=== PATIENT | female | born 1965 | race Caucasian/White ===

== ENCOUNTER 2023-06-04 16:30 | Emergency (ER) | payer MEDICAID, SELFPAY ==
--- NOTE | 2023-06-04 16:52 | ED.FEVER ---
HPI - Fever General Chief Complaint: Fever Stated Complaint: fever Time Seen by Provider: 06/04/23 18:34 Source: patient, family (son) and assurance analyst ( Syri[place]) Mode of arrival: ambulatory Limitations: no limitations History of Present Illness HPI Narrative: 58-year-old female came in for evaluation of a subjective fever for the past 7 days. on and off fever and chills that improve with ibuprofen, no sick contacts, patient traveled 2 weeks ago to [facility] Patient had [place]os[place] from [place] incision of the procedure is dry and clean and intact, patient feels a large lymph node behind her left ear, no ear pain, no sore throat, no runny nose, no coughing. Patient also was complaining some chest tightness earlier this morning. No chest pain, no coughing, no abdominal pain, no nausea, no vomiting, no diarrhea. Patient was evaluated twice at urgent care and was told is a viral syndrome. Related Data Allergies Allergy/AdvReac Type Severity Reaction Status Date / Time No Known Allergies Allergy Verified 06/04/23 16:59 Review of Systems Review of Systems: All other systems are reviewed and are negative Constitutional: Reports as per HPI and Reports no additional constitutional complaints Eyes: Reports as per HPI and Reports no additional eye complaints Reports system reviewed and no additional complaints, except as documented Cardiovascular: Reports as per HPI and Reports no additional cardiovascular complaints Respiratory: Reports as per HPI and Reports no additional respiratory complaints Gastrointestinal: Reports as per HPI and Reports no additional gastrointestinal complaints Genitourinary: Reports no additional female genitourinary complaints Musculoskeletal: Reports no additional musculoskeletal complaints Skin/Breast: Reports system reviewed and no additional complaints, except as docu Psychiatric: Reports no additional psychiatric complaints Endocrine: Reports no additional endocrine complaints Hematologic/Lymphatic: Reports no additional hematologic/lymphatic complaints Allergic/Immunologic: Reports no additional allergic/immunologic complaints Reports system reviewed and no additional complaints, except as documented and Reports Abnormal speech present PMFSH Social History Social History Advance Directives: No Advance Directives Information Provided: No Physical Exam Vital Signs: Vital Signs: Last Vital Signs Temp 98.4 F 06/04/23 16:54 Pulse 81 06/04/23 16:54 Resp 14 06/04/23 16:54 BP 113/73 06/04/23 16:54 Pulse Ox 94 06/04/23 16:54 O2 Del Method Room Air 06/04/23 16:54 BMI result Body Mass Index 34.5 Vital signs have been reviewed and appear to be correct. Blood pressure elevated. Heart rate normal. Respiratory rate normal. Temperature normal. Oxygen saturation normal. Appearance: Alert. Oriented X3. No acute distress. Head: Normal external exam. Normocephalic. Atraumatic. No Cross signs noted. No raccoon eyes noted. Mouth exam: No gum tenderness or swelling, no dental abscesses appreciated, mouth floor is normal with no elevation or tenderness or cellulitis , no tonsillar enlargement. Eyes: PERRLA. EOMI. Conjunctiva and sclera normal. Eyelids normal. ENT: TM's Normal. Pharynx normal. Uvula midline. Moist mucous membranes. No trismus noted. No drooling noted. No muffled voice noted. Neck: Normal inspection. Neck supple. FROM. No adenopathy. Thyroid Normal. No meningeal signs. No neck mass noted. CVS: Normal heart rate and rhythm. Heart sound normal. No murmurs noted. Pulses normal throughout. Respiratory: No respiratory distress. Painless inspiration. Breath sounds normal. No wheezes/rales/rhonchi noted. Chest nontender. No accessory muscle usage noted or decreased air movement noted. Abdomen: Soft and nontender. Bowel sounds normal in all 4 quadrants. No distention noted. No organomegaly noted. No visible injury noted. Back: No CVA tenderness. Full range of motion noted. Skin: Skin warm and dry. Normal skin color. Normal skin turgor. No rashes/lesions/lacerations noted. Extremities: No lower extremity edema. Extremities exhibit normal range of motion. Extremities nontender. Neuro: Oriented X 3. Cranial nerve exam: II-XII are grossly intact No motor deficit. No sensory deficit. Reflexes normal. Course Course Course Narrative: This is an RME: Additional HPI, ROS, PE not included below will be deferred to primary provider. 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 Intermittent fever x 1 week, responds to ibuprofen, headache x 1 week without improvement with ibuprofen, dizziness, chest pain and fatigue/ SOB with exertion/ walking. Seen at urgent care x2, advised viral illness. Endorses neck and back pain as well. Plan: labs, EKG, CXR, viral testing Reevaluation(s) Reevaluation #1: a 58-year-old female came in with fever of unclear etiology today is her 3rd evaluation this week for same fever, workup in the emergency department including chest x-ray/viral panel/ UA unremarkable. Time: 21:04 Medications Administered Discontinued Medications Generic Name Dose Route Start Last Admin Trade Name Freq PRN Reason Stop Dose Admin Sodium Chloride 1,000 mls @ 999 mls/hr 06/04/23 19:39 06/04/23 20:05 Ns IV 06/04/23 20:39 999 mls/hr .Q1H1M ONE Administration Potassium Chloride 10 meq in 100 mls @ 100 mls/hr 06/04/23 19:39 06/04/23 20:05 Potassium Chloride/H20 IV 06/04/23 20:38 100 mls/hr ONCE ONE Administration Potassium Chloride 40 meq 06/04/23 19:39 06/04/23 20:05 Potassium Chloride Packet 20 Meq Packet PO 06/04/23 19:40 40 meq ONCE ONE Administration Medical Decision Making Differential Diagnosis Differential Diagnoses: The differential diagnosis associated with the presentation includes ( COVID-19 infection, influenza, pneumonia, UTI, electrolyte abnormality, sepsis,) Admission/Observation Consideration of admission/observation: Escalation of care including admission/observation considered Lab Data MDM Lab Attestation statement: I reviewed the patient's lab results. 06/04/23 Unknown 06/04/23 Unknown Labs: Lab Results 06/04/23 06/04/23 Range/Units 18:53 Unknown WBC 9.7 (4.8-10.8) X10*3/uL RBC 5.37 (4.20-5.50) X10*6/uL Hgb 11.0 L (12.0-16.0) g/dl Hct 35.3 L (37.0-47.0) % MCV 65.7 L (80.0-98.0) fL MCH 20.5 L (27.0-33.0) pg MCHC 31.2 (31.0-35.0) g/dl RDW 16.3 H (11.0-16.0) % Plt Count 207 (160-400) X10*3/uL MPV 9.8 (9.4-12.3) fL Immature Gran % (Auto) 0.6 H (0.0-0.4) % Neut % (Auto) 51.6 (45-73) % Lymph % (Auto) 32.9 (20-40) % Alcorn % (Auto) 4.5 (2-11) % Eos % (Auto) 10.1 H (0-4) % Baso % (Auto) 0.3 (0-2) % Lymph # (Auto) 3.2 (1.2-4.9) X10*3/uL Alcorn # (Auto) 0.4 (0.1-1.2) X10*3/uL Eos # (Auto) 1.0 H (0.0-0.4) X10*3/uL Baso # (Auto) 0.0 (0.0-0.2) X10*3/uL Abs Immat Gran (auto) 0.06 H (0.00-0.03) X10*3/uL Absolute Neuts (auto) 5.0 (2.0-8.3) x10*3/uL Absolute Nucleated RBC 0.000 (0.0-0.012) X10*3/uL Nucleated RBC % (auto) 0.0 (0.0-0.2) /100WBC Smear Tech's Comments VERIFIED PT 13.4 H (11.1-13.3) SEC INR 1.1 (0.9-1.1) Sodium 140 (135-145) mmol/L Potassium 3.2 L (3.3-5.1) mmol/L Chloride 96 (96-108) mmol/L Carbon Dioxide 31 H (22-29) mmol/L Anion Gap 16 (12-20) BUN 21 H (9-16) mg/dL Creatinine 0.99 (0.5-1.4) mg/dL Estim Creat Clear Calc 74.5 Estimated GFR 58 Random Glucose 108 (60-115) mg/dL Calcium 9.4 (8.4-10.2) mg/dL Magnesium 1.8 (1.6-2.6) mg/dL Total Bilirubin 0.4 (0.0-1.0) mg/dL AST 19 (5-31) U/L ALT 26 (0-31) U/L Alkaline Phosphatase 117 (39-117) U/L Troponin I High Sens < 2.7 (<3.5-17.0) ng/L Total Protein 8.4 H (6.5-8.0) g/dL Albumin 3.8 (3.5-5.0) g/dL COVID-19 (HARRIETT) Negative (Negative) COVID-19 Clin Com See Note Influenza Type A (JANINE) Negative (Negative) Influenza Type B (JANINE) Negative (Negative) Influenza A & B Note See Note S. pyogenes GrpA JANINE Negative (Negative) Independent Interpretation I performed an independent interpretation of an: Plain X-Ray ( chest: No acute intrathoracic pathology.) Radiology Impression Discussion of test interpretation with radiology: I have reviewed the radiologist's reading. Discharge Plan Discharge Clinical Impression: Fever of unknown origin, Acute viral syndrome Patient Disposition: Home, Self-Care Instructions: Fever in Adults (ED)
[2023-06-04 16:54] VITALS: BP 113/73; PULSE 81; RESP 14; TEMP 36.9; O2SAT 94; BMI 34.5
--- NOTE | 2023-06-04 21:26 | PC.NURSE ---
Patient called this nurse into the room and complained that the IV potassium was causing her pain and doesn't want to finish the IV medication. Provider made aware and Okay'd for patient to not receive IV Potassium.
[2023-06-04 21:49] VITALS: BP 120/74; PULSE 91; RESP 15; O2SAT 96
== END 2023-06-04 21:55 | disposition home or self-care (01) ==
PROVIDERS: Emergency Provider Emergency Medicine
DX: B34.9 Viral infection, unspecified (principal); R50.9 Fever, unspecified; Z11.52 Encounter for screening for COVID-19
CPT/HCPCS: 71046; 80053; 81001; 83735; 84484; 85025; 85610; 87502; 87635; 87651; 93005; 96360; 99284; 99285

== ENCOUNTER 2023-06-09 22:21 | Emergency (ER) | payer MEDICAID, SELFPAY ==
--- NOTE | ~2023-06-09 | XR_ITS ---
EXAMINATION: XR CHEST CLINICAL INFORMATION: Shortness of breath COMPARISON: 06/04/2023 TECHNIQUE: Frontal view of the chest was obtained. FINDINGS: Similar appearing streaky opacities in left lower lung, likely subsegmental atelectasis. Mild bronchial wall thickening. No parenchymal consolidation. No pleural effusion. No pneumothorax. Cardiomediastinal silhouette and pulmonary vascularity are within normal limits. No acute osseous abnormalities. XR/XR chest 1V IMPRESSION: * Mild bronchial wall thickening could be compatible with mild bronchitis. * No focal consolidation.
[2023-06-09 22:41] VITALS: BP 137/66; PULSE 98; RESP 18; TEMP 38.1; O2SAT 93; BMI 35.2
[2023-06-09 23:30] LABS: MANUAL DIFF FLAG NO
[2023-06-09 23:31] LABS: Basophils Percent Auto 0.3 % (0-2); Eosinophils Absolute Auto 0.3 X10*3/uL (0.0-0.4); Eosinophils Percent Auto 2.5 % (0-4); Hematocrit 35.4 % (37.0-47.0); Hemoglobin 10.8 g/dl (12.0-16.0); Imm Gran Abs Auto 0.09 X10*3/uL (0.00-0.03); Imm Gran Pct Auto 0.7 % (0.0-0.4); Lymphocytes Absolute Auto 0.9 X10*3/uL (1.2-4.9); Lymphocytes Percent Auto 6.9 % (20-40); Mean Corpuscular HGB Conc 30.5 g/dl (31.0-35.0); Mean Corpuscular Hemoglobin 20.3 pg (27.0-33.0); Mean Corpuscular Volume 66.4 fL (80.0-98.0); Mean Platelet Volume 9.4 fL (9.4-12.3); Monocytes Absolute Auto 0.5 X10*3/uL (0.1-1.2); Monocytes Percent Auto 3.7 % (2-11); Neutrophils Absolute Auto 11.2 x10*3/uL (2.0-8.3); Neutrophils Percent Auto 85.9 % (45-73); Platelet Count 263 X10*3/uL (160-400); Red Blood Count 5.33 X10*6/uL (4.20-5.50); Red Cell Distribution Width 16.6 % (11.0-16.0)
[2023-06-09] MEDS: Acetaminophen 325 MG TABLET 650 MG PO (23:35)
[2023-06-09 23:48] LABS: COVID-19 Test Negative (Negative); IDNOW Serial# 9DB6401D; IDNOW Serial# BCCEAD1C; Influenza A Negative (Negative); Influenza B2 Negative (Negative)
[2023-06-09 23:50] LABS: Alanine Aminotransferase 22 U/L (0-31); Albumin Level 3.8 g/dL (3.5-5.0); Alkaline Phosphatase 92 U/L (39-117); Anion Gap 15 (12-20); Aspartate Amino Transferase 21 U/L (5-31); Bilirubin Direct 0.3 mg/dL (0.0-0.5); Bilirubin Total 0.8 mg/dL (0.0-1.0); Blood Urea Nitrogen 16 mg/dL (9-16); Carbon Dioxide 26 mmol/L (22-29); Chloride 101 mmol/L (96-108); Estimated Glomerular Filt Rate > 60; Glucose Random 106 mg/dL (60-115); Potassium 4.2 mmol/L (3.3-5.1); Sodium 138 mmol/L (135-145); Total Protein 8.5 g/dL (6.5-8.0)
--- NOTE | 2023-06-10 01:53 | ECG_ITS ---
Test Reason : SOB Blood Pressure : / mmHG Vent. Rate : 076 BPM Atrial Rate : 076 BPM P-R Int : 150 ms QRS Dur : 088 ms QT Int : 394 ms P-R-T Axes : 043 -23 043 degrees QTc Int : 443 ms Normal sinus rhythm RSR' or QR pattern in V1 suggests right ventricular conduction delay Otherwise normal ECG When compared with ECG of 04-JUN-2023 17:13, previous study had limb leads reversed Referred By: Jes Munoz Electronically Signed By:HAILEY SR MD
[2023-06-10 01:55] VITALS: BP 124/67; PULSE 85; RESP 16; TEMP 36.6; O2SAT 94
[2023-06-10 02:02] LABS: Appearance Urine Clear; Color Urine Yellow; Glucose Urine UA Negative (Negative); Leukocyte Esterase Urine Moderate (2+) (Negative); Nitrite Urine Negative (Negative); UMIC TRIGGER UACC YES; Urine Blood Negative (Negative); Urine Ketones Negative (Negative); Urine Protein Negative (Neg-Trace)
[2023-06-10 02:07] LABS: Bacteria Urine None Seen (None Seen); Hyaline Casts Urine 0-2 /LPF (0-2); RBC Urine 0-2 /HPF (0-2); Squamous Epithelial Cell Urine 0-2 /HPF (0-2); UACC Culture Trigger YES
[2023-06-10] MEDS: Ibuprofen 400 MG TABLET PO (02:08)
--- NOTE | 2023-06-10 02:17 | PC.NURSE ---
EKG obtained and reviewed by provider.
--- NOTE | 2023-06-10 02:24 | ED.GENADULT ---
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 Patient does endorse that she had plastic surgery done in [place] at the end of March but denies any redness or swelling at the neck area. She is diabetic and has high blood pressure. She otherwise denies any GI or symptoms. Related Data Previous Rx's Medication Instructions Recorded amoxicillin 875 mg-potassium 1 tab PO BID 5 days #10 tabs 06/10/23 clavulanate 125 mg tablet Allergies Allergy/AdvReac Type Severity Reaction Status Date / Time No Known Allergies Allergy Verified 06/09/23 22:40 Review of Systems Review of Systems: Pertinent positives and negatives as stated in HPI [facility] Past Medical History Source: nursing notes reviewed Social History Social History Alcohol intake: never Advance Directives: No Advance Directives Information Provided: Yes Physical Exam ED Vital Signs: Vital Signs - 24 hr 06/09/23 22:41 06/10/23 01:55 Temperature 100.6 F H 97.8 F Pulse Rate 98 85 Respiratory Rate 18 16 Blood Pressure 137/66 124/67 Pulse Oximetry 93 94 Oxygen Delivery Method Room Air Room Air BMI result Body Mass Index 35.2 VITAL SIGNS: Reviewed. GENERAL: Well developed, well nourished, in no acute distress. HEAD: Normocephalic/atraumatic EYES: PERRLA, EOMI EARS: Ext canals without abnormality, TMs non-bulging and non-erythematous NOSE: Nares patent bilateral OROPHARYNX: no oral lesions noted, posterior pharynx clear and non-erythematous without noted tonsillar enlargement/erythema/exudates NECK: Supple, +adenopathy LUNGS: Normal breath sounds. No adventitious sounds or accessory muscle use. SpO2<94> CARDIOVASCULAR: Regular rate and rhythm without noted murmurs ABDOMEN: Soft, non-tender, non-distended with bowel sounds. MUSCULOSKELETAL: No tenderness, deformities, or effusions noted on gross inspection. EXTREMITIES: No cyanosis, clubbing or edema. SKIN: Inspection of the skin reveals no rashes NEUROLOGIC: Alert and oriented x 4. Strength and sensation to light touch were grossly intact x 4. Medications Administered Discontinued Medications Generic Name Dose Route Start Last Admin Trade Name Oscar PRN Reason Stop Dose Admin Acetaminophen 650 mg 06/09/23 22:54 06/09/23 23:35 Acetaminophen 325 Mg Tablet PO 06/09/23 22:55 650 mg ONCE ONE Administration Ibuprofen 400 mg 06/10/23 01:52 06/10/23 02:08 Ibuprofen 400 Mg Tablet PO 06/10/23 01:53 400 mg ONCE ONE Administration Medical Decision Making Medical Decision Making MDM Narrative: 58-year-old female with history and clinical presentation not consistent with any facial or neck cellulitis, there is no evidence the posterior pharynx of any infection and the ears are clear. Patient has no abdominal discomfort and no reported nausea or vomiting so I do not feel that there is any intra-abdominal infection either. I reviewed all other investigations and patient has hematologic indices with a leukocytosis and a stable microcytic anemia, there is no thrombocytopenia but there is a noted left shift. Chemistry indices are negative for ARYA and there is no electrolyte or liver enzyme abnormalities. Viral testing for COVID-19 and influenza are once again negative, however urinalysis does appear to demonstrate evidence of a urinary tract infection as there is leukocyte esterase and the presence of WBCs. Chest x-ray suggests possibility of bronchitis but no infiltrates. Differential Diagnosis Differential Diagnoses: The differential diagnosis associated with the presentation includes Please see the discussion above Admission/Observation Consideration of admission/observation: Escalation of care including admission/observation considered Please see the discussion above Lab Data [facility] Lab Attestation statement: I reviewed the patient's lab results. Please see the discussion above 06/09/23 23:23 06/09/23 23:23 Labs: Lab Results 06/09/23 06/10/23 06/10/23 Range/Units 23:23 01:52 01:52 WBC 13.0 H (4.8-10.8) X10*3/uL RBC 5.33 (4.20-5.50) X10*6/uL Hgb 10.8 L (12.0-16.0) g/dl Hct 35.4 L (37.0-47.0) % MCV 66.4 L (80.0-98.0) fL MCH 20.3 L (27.0-33.0) pg MCHC 30.5 L (31.0-35.0) g/dl RDW 16.6 H (11.0-16.0) % Plt Count 263 D (160-400) X10*3/uL MPV 9.4 (9.4-12.3) fL Immature Gran % (Auto) 0.7 H (0.0-0.4) % Neut % (Auto) 85.9 H (45-73) % Lymph % (Auto) 6.9 L (20-40) % [place] % (Auto) 3.7 (2-11) % Eos % (Auto) 2.5 (0-4) % Baso % (Auto) 0.3 (0-2) % Lymph # (Auto) 0.9 L (1.2-4.9) X10*3/uL [place] # (Auto) 0.5 (0.1-1.2) X10*3/uL Eos # (Auto) 0.3 (0.0-0.4) X10*3/uL Baso # (Auto) 0.0 (0.0-0.2) X10*3/uL Abs Immat Gran (auto) 0.09 H (0.00-0.03) X10*3/uL Absolute Neuts (auto) 11.2 H (2.0-8.3) x10*3/uL Absolute Nucleated RBC 0.000 (0.0-0.012) X10*3/uL Nucleated RBC % (auto) 0.0 (0.0-0.2) /100WBC Sodium 138 (135-145) mmol/L Potassium 4.2 D (3.3-5.1) mmol/L Chloride 101 (96-108) mmol/L Carbon Dioxide 26 (22-29) mmol/L Anion Gap 15 (12-20) BUN 16 (9-16) mg/dL Creatinine 0.90 (0.5-1.4) mg/dL Estim Creat Clear Calc 80.0 Estimated GFR > 60 Random Glucose 106 (60-115) mg/dL Lactic Acid 1.0 (0.5-2.0) mmol/L Calcium 9.0 (8.4-10.2) mg/dL Total Bilirubin 0.8 (0.0-1.0) mg/dL Direct Bilirubin 0.3 (0.0-0.5) mg/dL AST 21 (5-31) U/L ALT 22 (0-31) U/L Alkaline Phosphatase 92 (39-117) U/L Total Protein 8.5 H (6.5-8.0) g/dL Albumin 3.8 (3.5-5.0) g/dL Urine Color Yellow Cancelled Urine Appearance Clear Urine pH (5.0-9.0) Ur Specific [place] (1.005-1.025) Urine Protein (Neg-Trace) mg/dL Urine Glucose (UA) (Negative) mg/dL Urine Ketones (Negative) mg/dL Urine Blood (Negative) Urine Nitrite (Negative) Ur Leukocyte Esterase (Negative) Urine RBC (0-2) /HPF Urine WBC (0-5) /HPF Urine WBC Clumps Ur Squamous Epith Cells (0-2) /HPF Ur Transition Epith Cell Ur Renal Epithelial Cell Calcium Oxalate Crystal Leucine Crystals Cystine Crystals Tyrosine Crystals Other Crystals Urine Bacteria (None Seen) Urine Parasites Bilirubin Casts Epithelial Casts Fatty Casts Hyaline Casts (0-2) /LPF Granular Casts Waxy Casts Broad Casts RBC Casts WBC Casts Other Casts Urine Trichomonas Urine Yeast COVID-19 (HARRIETT) Negative (Negative) COVID-19 Clin Com See Note Influenza Type A (JANINE) Negative (Negative) Influenza Type B (JANINE) Negative (Negative) Influenza A & B Note See Note 06/10/23 06/10/23 06/10/23 Range/Units 01:52 01:52 01:52 WBC (4.8-10.8) X10*3/uL RBC (4.20-5.50) X10*6/uL Hgb (12.0-16.0) g/dl Hct (37.0-47.0) % MCV (80.0-98.0) fL MCH (27.0-33.0) pg MCHC (31.0-35.0) g/dl RDW (11.0-16.0) % Plt Count (160-400) X10*3/uL MPV (9.4-12.3) fL Immature Gran % (Auto) (0.0-0.4) % Neut % (Auto) (45-73) % Lymph % (Auto) (20-40) % [place] % (Auto) (2-11) % Eos % (Auto) (0-4) % Baso % (Auto) (0-2) % Lymph # (Auto) (1.2-4.9) X10*3/uL [place] # (Auto) (0.1-1.2) X10*3/uL Eos # (Auto) (0.0-0.4) X10*3/uL Baso # (Auto) (0.0-0.2) X10*3/uL Abs Immat Gran (auto) (0.00-0.03) X10*3/uL Absolute Neuts (auto) (2.0-8.3) x10*3/uL Absolute Nucleated RBC (0.0-0.012) X10*3/uL Nucleated RBC % (auto) (0.0-0.2) /100WBC Sodium (135-145) mmol/L Potassium (3.3-5.1) mmol/L Chloride (96-108) mmol/L Carbon Dioxide (22-29) mmol/L Anion Gap (12-20) BUN (9-16) mg/dL Creatinine (0.5-1.4) mg/dL Estim Creat Clear Calc Estimated GFR Random Glucose (60-115) mg/dL Lactic Acid (0.5-2.0) mmol/L Calcium (8.4-10.2) mg/dL Total Bilirubin (0.0-1.0) mg/dL Direct Bilirubin (0.0-0.5) mg/dL AST (5-31) U/L ALT (0-31) U/L Alkaline Phosphatase (39-117) U/L Total Protein (6.5-8.0) g/dL Albumin (3.5-5.0) g/dL Urine Color Urine Appearance Cancelled Urine pH 6.0 Cancelled (5.0-9.0) Ur Specific [place] 1.010 Cancelled (1.005-1.025) Urine Protein Negative (Neg-Trace) mg/dL Urine Glucose (UA) (Negative) mg/dL Urine Ketones (Negative) mg/dL Urine Blood (Negative) Urine Nitrite (Negative) Ur Leukocyte Esterase (Negative) Urine RBC (0-2) /HPF Urine WBC (0-5) /HPF Urine WBC Clumps Ur Squamous Epith Cells (0-2) /HPF Ur Transition Epith Cell Ur Renal Epithelial Cell Calcium Oxalate Crystal Leucine Crystals Cystine Crystals Tyrosine Crystals Other Crystals Urine Bacteria (None Seen) Urine Parasites Bilirubin Casts Epithelial Casts Fatty Casts Hyaline Casts (0-2) /LPF Granular Casts Waxy Casts Broad Casts RBC Casts WBC Casts Other Casts Urine Trichomonas Urine Yeast COVID-19 (HARRIETT) (Negative) COVID-19 Clin Com Influenza Type A (JANINE) (Negative) Influenza Type B (JANINE) (Negative) Influenza A & B Note 06/10/23 06/10/23 06/10/23 Range/Units 01:52 01:52 01:52 WBC (4.8-10.8) X10*3/uL RBC (4.20-5.50) X10*6/uL Hgb (12.0-16.0) g/dl Hct (37.0-47.0) % MCV (80.0-98.0) fL MCH (27.0-33.0) pg MCHC (31.0-35.0) g/dl RDW (11.0-16.0) % Plt Count (160-400) X10*3/uL MPV (9.4-12.3) fL Immature Gran % (Auto) (0.0-0.4) % Neut % (Auto) (45-73) % Lymph % (Auto) (20-40) % [place] % (Auto) (2-11) % Eos % (Auto) (0-4) % Baso % (Auto) (0-2) % Lymph # (Auto) (1.2-4.9) X10*3/uL [place] # (Auto) (0.1-1.2) X10*3/uL Eos # (Auto) (0.0-0.4) X10*3/uL Baso # (Auto) (0.0-0.2) X10*3/uL Abs Immat Gran (auto) (0.00-0.03) X10*3/uL Absolute Neuts (auto) (2.0-8.3) x10*3/uL Absolute Nucleated RBC (0.0-0.012) X10*3/uL Nucleated RBC % (auto) (0.0-0.2) /100WBC Sodium (135-145) mmol/L Potassium (3.3-5.1) mmol/L Chloride (96-108) mmol/L Carbon Dioxide (22-29) mmol/L Anion Gap (12-20) BUN (9-16) mg/dL Creatinine (0.5-1.4) mg/dL Estim Creat Clear Calc Estimated GFR Random Glucose (60-115) mg/dL Lactic Acid (0.5-2.0) mmol/L Calcium (8.4-10.2) mg/dL Total Bilirubin (0.0-1.0) mg/dL Direct Bilirubin (0.0-0.5) mg/dL AST (5-31) U/L ALT (0-31) U/L Alkaline Phosphatase (39-117) U/L Total Protein (6.5-8.0) g/dL Albumin (3.5-5.0) g/dL Urine Color Urine Appearance Urine pH (5.0-9.0) Ur Specific [place] (1.005-1.025) Urine Protein Cancelled (Neg-Trace) mg/dL Urine Glucose (UA) Negative Cancelled (Negative) mg/dL Urine Ketones Negative Cancelled (Negative) mg/dL Urine Blood Negative (Negative) Urine Nitrite (Negative) Ur Leukocyte Esterase (Negative) Urine RBC (0-2) /HPF Urine WBC (0-5) /HPF Urine WBC Clumps Ur Squamous Epith Cells (0-2) /HPF Ur Transition Epith Cell Ur Renal Epithelial Cell Calcium Oxalate Crystal Leucine Crystals Cystine Crystals Tyrosine Crystals Other Crystals Urine Bacteria (None Seen) Urine Parasites Bilirubin Casts Epithelial Casts Fatty Casts Hyaline Casts (0-2) /LPF Granular Casts Waxy Casts Broad Casts RBC Casts WBC Casts Other Casts Urine Trichomonas Urine Yeast COVID-19 (HARRIETT) (Negative) COVID-19 Clin Com Influenza Type A (JANINE) (Negative) Influenza Type B (JANINE) (Negative) Influenza A & B Note 06/10/23 06/10/23 06/10/23 Range/Units 01:52 01:52 01:52 WBC (4.8-10.8) X10*3/uL RBC (4.20-5.50) X10*6/uL Hgb (12.0-16.0) g/dl Hct (37.0-47.0) % MCV (80.0-98.0) fL MCH (27.0-33.0) pg MCHC (31.0-35.0) g/dl RDW (11.0-16.0) % Plt Count (160-400) X10*3/uL MPV (9.4-12.3) fL Immature Gran % (Auto) (0.0-0.4) % Neut % (Auto) (45-73) % Lymph % (Auto) (20-40) % [place] % (Auto) (2-11) % Eos % (Auto) (0-4) % Baso % (Auto) (0-2) % Lymph # (Auto) (1.2-4.9) X10*3/uL [place] # (Auto) (0.1-1.2) X10*3/uL Eos # (Auto) (0.0-0.4) X10*3/uL Baso # (Auto) (0.0-0.2) X10*3/uL Abs Immat Gran (auto) (0.00-0.03) X10*3/uL Absolute Neuts (auto) (2.0-8.3) x10*3/uL Absolute Nucleated RBC (0.0-0.012) X10*3/uL Nucleated RBC % (auto) (0.0-0.2) /100WBC Sodium (135-145) mmol/L Potassium (3.3-5.1) mmol/L Chloride (96-108) mmol/L Carbon Dioxide (22-29) mmol/L Anion Gap (12-20) BUN (9-16) mg/dL Creatinine (0.5-1.4) mg/dL Estim Creat Clear Calc Estimated GFR Random Glucose (60-115) mg/dL Lactic Acid (0.5-2.0) mmol/L Calcium (8.4-10.2) mg/dL Total Bilirubin (0.0-1.0) mg/dL Direct Bilirubin (0.0-0.5) mg/dL AST (5-31) U/L ALT (0-31) U/L Alkaline Phosphatase (39-117) U/L Total Protein (6.5-8.0) g/dL Albumin (3.5-5.0) g/dL Urine Color Urine Appearance Urine pH (5.0-9.0) Ur Specific [place] (1.005-1.025) Urine Protein (Neg-Trace) mg/dL Urine Glucose (UA) (Negative) mg/dL Urine Ketones (Negative) mg/dL Urine Blood Cancelled (Negative) Urine Nitrite Negative Cancelled (Negative) Ur Leukocyte Esterase Moderate (2+) H Cancelled (Negative) Urine RBC 0-2 (0-2) /HPF Urine WBC (0-5) /HPF Urine WBC Clumps Ur Squamous Epith Cells (0-2) /HPF Ur Transition Epith Cell Ur Renal Epithelial Cell Calcium Oxalate Crystal Leucine Crystals Cystine Crystals Tyrosine Crystals Other Crystals Urine Bacteria (None Seen) Urine Parasites Bilirubin Casts Epithelial Casts Fatty Casts Hyaline Casts (0-2) /LPF Granular Casts Waxy Casts Broad Casts RBC Casts WBC Casts Other Casts Urine Trichomonas Urine Yeast COVID-19 (HARRIETT) (Negative) COVID-19 Clin Com Influenza Type A (JANINE) (Negative) Influenza Type B (JANINE) (Negative) Influenza A & B Note 06/10/23 06/10/23 06/10/23 Range/Units 01:52 01:52 01:52 WBC (4.8-10.8) X10*3/uL RBC (4.20-5.50) X10*6/uL Hgb (12.0-16.0) g/dl Hct (37.0-47.0) % MCV (80.0-98.0) fL MCH (27.0-33.0) pg MCHC (31.0-35.0) g/dl RDW (11.0-16.0) % Plt Count (160-400) X10*3/uL MPV (9.4-12.3) fL Immature Gran % (Auto) (0.0-0.4) % Neut % (Auto) (45-73) % Lymph % (Auto) (20-40) % [place] % (Auto) (2-11) % Eos % (Auto) (0-4) % Baso % (Auto) (0-2) % Lymph # (Auto) (1.2-4.9) X10*3/uL [place] # (Auto) (0.1-1.2) X10*3/uL Eos # (Auto) (0.0-0.4) X10*3/uL Baso # (Auto) (0.0-0.2) X10*3/uL Abs Immat Gran (auto) (0.00-0.03) X10*3/uL Absolute Neuts (auto) (2.0-8.3) x10*3/uL Absolute Nucleated RBC (0.0-0.012) X10*3/uL Nucleated RBC % (auto) (0.0-0.2) /100WBC Sodium (135-145) mmol/L Potassium (3.3-5.1) mmol/L Chloride (96-108) mmol/L Carbon Dioxide (22-29) mmol/L Anion Gap (12-20) BUN (9-16) mg/dL Creatinine (0.5-1.4) mg/dL Estim Creat Clear Calc Estimated GFR Random Glucose (60-115) mg/dL Lactic Acid (0.5-2.0) mmol/L Calcium (8.4-10.2) mg/dL Total Bilirubin (0.0-1.0) mg/dL Direct Bilirubin (0.0-0.5) mg/dL AST (5-31) U/L ALT (0-31) U/L Alkaline Phosphatase (39-117) U/L Total Protein (6.5-8.0) g/dL Albumin (3.5-5.0) g/dL Urine Color Urine Appearance Urine pH (5.0-9.0) Ur Specific [place] (1.005-1.025) Urine Protein (Neg-Trace) mg/dL Urine Glucose (UA) (Negative) mg/dL Urine Ketones (Negative) mg/dL Urine Blood (Negative) Urine Nitrite (Negative) Ur Leukocyte Esterase (Negative) Urine RBC Cancelled (0-2) /HPF Urine WBC 11-20 H Cancelled (0-5) /HPF Urine WBC Clumps Cancelled Ur Squamous Epith Cells 0-2 Cancelled (0-2) /HPF Ur Transition Epith Cell Cancelled Ur Renal Epithelial Cell Cancelled Calcium Oxalate Crystal Cancelled Leucine Crystals Cancelled Cystine Crystals Cancelled Tyrosine Crystals Cancelled Other Crystals Cancelled Urine Bacteria None Seen (None Seen) Urine Parasites Bilirubin Casts Epithelial Casts Fatty Casts Hyaline Casts (0-2) /LPF Granular Casts Waxy Casts Broad Casts RBC Casts WBC Casts Other Casts Urine Trichomonas Urine Yeast COVID-19 (HARRIETT) (Negative) COVID-19 Clin Com Influenza Type A (JANINE) (Negative) Influenza Type B (JANINE) (Negative) Influenza A & B Note 06/10/23 06/10/23 Range/Units 01:52 01:52 WBC (4.8-10.8) X10*3/uL RBC (4.20-5.50) X10*6/uL Hgb (12.0-16.0) g/dl Hct (37.0-47.0) % MCV (80.0-98.0) fL MCH (27.0-33.0) pg MCHC (31.0-35.0) g/dl RDW (11.0-16.0) % Plt Count (160-400) X10*3/uL MPV (9.4-12.3) fL Immature Gran % (Auto) (0.0-0.4) % Neut % (Auto) (45-73) % Lymph % (Auto) (20-40) % [place] % (Auto) (2-11) % Eos % (Auto) (0-4) % Baso % (Auto) (0-2) % Lymph # (Auto) (1.2-4.9) X10*3/uL [place] # (Auto) (0.1-1.2) X10*3/uL Eos # (Auto) (0.0-0.4) X10*3/uL Baso # (Auto) (0.0-0.2) X10*3/uL Abs Immat Gran (auto) (0.00-0.03) X10*3/uL Absolute Neuts (auto) (2.0-8.3) x10*3/uL Absolute Nucleated RBC (0.0-0.012) X10*3/uL Nucleated RBC % (auto) (0.0-0.2) /100WBC Sodium (135-145) mmol/L Potassium (3.3-5.1) mmol/L Chloride (96-108) mmol/L Carbon Dioxide (22-29) mmol/L Anion Gap (12-20) BUN (9-16) mg/dL Creatinine (0.5-1.4) mg/dL Estim Creat Clear Calc Estimated GFR Random Glucose (60-115) mg/dL Lactic Acid (0.5-2.0) mmol/L Calcium (8.4-10.2) mg/dL Total Bilirubin (0.0-1.0) mg/dL Direct Bilirubin (0.0-0.5) mg/dL AST (5-31) U/L ALT (0-31) U/L Alkaline Phosphatase (39-117) U/L Total Protein (6.5-8.0) g/dL Albumin (3.5-5.0) g/dL Urine Color Urine Appearance Urine pH (5.0-9.0) Ur Specific [place] (1.005-1.025) Urine Protein (Neg-Trace) mg/dL Urine Glucose (UA) (Negative) mg/dL Urine Ketones (Negative) mg/dL Urine Blood (Negative) Urine Nitrite (Negative) Ur Leukocyte Esterase (Negative) Urine RBC (0-2) /HPF Urine WBC (0-5) /HPF Urine WBC Clumps Ur Squamous Epith Cells (0-2) /HPF Ur Transition Epith Cell Ur Renal Epithelial Cell Calcium Oxalate Crystal Leucine Crystals Cystine Crystals Tyrosine Crystals Other Crystals Urine Bacteria Cancelled (None Seen) Urine Parasites Cancelled Bilirubin Casts Cancelled Epithelial Casts Cancelled Fatty Casts Cancelled Hyaline Casts 0-2 Cancelled (0-2) /LPF Granular Casts Cancelled Waxy Casts Cancelled Broad Casts Cancelled RBC Casts Cancelled WBC Casts Cancelled Other Casts Cancelled Urine Trichomonas Cancelled Urine Yeast Cancelled COVID-19 (HARRIETT) (Negative) COVID-19 Clin Com Influenza Type A (JANINE) (Negative) Influenza Type B (JANINE) (Negative) Influenza A & B Note Independent Interpretation I performed an independent interpretation of an: EKG Interpretation: Normal sinus rhythm, HR-76, no STEMI, OH/QRS/QTC is within normal limits. Radiology Impression Discussion of test interpretation with radiology: I have reviewed the radiologist's reading. Radiologist Impression: Please see the discussion above External Record Review External record reviewed: Outpatient record, Prior outpatient labs and Prior outpatient radiology Chronic Conditions Patient?s care impacted by: Diabetes and Hypertension Discharge Plan Discharge Clinical Impression: Urinary tract infection, Bronchitis Patient Disposition: Home, Self-Care Instructions: Urinary Tract Infection in Women (ED), Acute Bronchitis (ED) Additional Instructions: 1. Resume all home medications as prescribed. 2. Complete the course of antibiotics for your bronchitis and urinary tract infection. 3. Please contact your primary care doctor in the morning. Return to the ER for any worsening symptoms. Prescriptions: New amoxicillin-pot clavulanate 875-125 mg tablet 1 tab PO BID 5 Days Qty: 10 0RF
[2023-06-10] MEDS: Amoxicillin/Potassium Clav 875 MG TABLET PO (02:56)
--- NOTE | 2023-06-10 02:59 | PC.NURSE ---
Pt given discharge instructions, instructions understood, pt told to follow up with primary.
== END 2023-06-10 02:59 | disposition home or self-care (01) ==
PROVIDERS: Emergency Provider Student in an Organized Health Care Education/Training Program
DX: N39.0 Urinary tract infection, site not specified (principal); J40 Bronchitis, not specified as acute or chronic; R07.89 Other chest pain; J02.9 Acute pharyngitis, unspecified; R50.9 Fever, unspecified; R06.02 Shortness of breath; R51.9 Headache, unspecified; Z79.899 Other long term (current) drug therapy
CPT/HCPCS: 71045; 80048; 80076; 81001; 83605; 85025; 87040; 87086; 87502; 87635; 93005; 99283; 99284

== ENCOUNTER 2024-06-02 16:11 | Emergency (ER) | payer MEDICAID, SELFPAY ==
--- NOTE | ~2024-06-02 | CT_ITS ---
EXAMINATION: CT TEMPORAL BONE WITHOUT IV CONTRAST CLINICAL INFORMATION: R mastoid bone tenderness COMPARISON: None. TECHNIQUE: Unenhanced temporal bone CT. Intravenous Contrast: None This CT examination was performed using dose optimization techniques as appropriate, variously including the following: *Automated exposure control *Adjustment of mA and/or kV according to patient size (this includes techniques or standardized protocols for targeted exams where dose is matched to indication/reason for exam; i.e. extremities or head) *Use of iterative reconstruction technique DLP: 253 mGy-cm FINDINGS: Within the entirely visualized intracranial structures, the ventricles and sulci are normal in size and configuration and no focal parenchymal lesions of the brain or abnormal extra-axial fluid collections identified. Normal appearance of the orbits and globes. The left and right parotid glands each demonstrate ovoid foci side most suspicious for intraparotid lymph nodes. Additionally, a 7 mm rounded nodule is present anteriorly within the superficial lobe of the right parotid and a 6 mm x 7 mm rounded density is present anteriorly within the superficial lobe left parotid (series 4 image 18). Partial visualization is made of several left anterior cervical level 2 lymph nodes which measure slightly above normal limits of size with short axis diameters measuring 1.2 cm. No mastoid or middle ear cavity effusions identified. Normal appearance of the middle ear structures. No tegmen tendon IT has since. Grossly normal appearance of the inner ear structures. No temporal mandibular joint arthropathic changes. Normal appearance of the pharynx. Right external auditory canal and pinna are normal in appearance. CT/CT mastoid IMPRESSION: *No acute abnormality is identified. No findings to specifically correlate with right mastoid bone tenderness. *Indeterminate bilateral parotid lesions. 7 mm diameter rounded nodules are present in the superficial lobes of the left and right parotids may represent intraparotid lymph nodes or parotid tumors. Additionally, several borderline enlarged left anterior cervical level 2 lymph nodes are noted. Overall, as clinically indicated, findings could be further evaluated with dedicated unenhanced and IV contrast enhanced MRI of the neck. Electronically signed by: Arben Oates MD 06/03/2024 01:34 AM EDT
[2024-06-02 16:21] VITALS: BP 93/54; PULSE 84; RESP 16; TEMP 36.8; O2SAT 95; BMI 37.0
--- NOTE | 2024-06-02 16:25 | ED.GENADULT ---
HPI - General Adult General Chief complaint: Ear Problems Stated complaint: acute resp. infection, mastoiditis w/out compl Time Seen by Provider: 06/02/24 22:46 Source: patient and other (Via aerobic translator interpreter/VOYCE) Mode of arrival: ambulatory Limitations: no limitations History of Present Illness ED Provider: Dr. Stephanie Suarez HPI narrative: Patient comes to the emergency room complaining of pain behind the ear on the right. Patient states that couple of days ago she received her shot for influenza and for hepatitis. The next day patient started developing pain behind her right ear. Patient states that she does not have ear pain on the inside on either side. Patient states that yesterday she took her temperature, had a fever of 101. Patient denies sore throat, runny nose, chest pain or shortness of breath, denies abdominal pain or UTI symptoms. Patient went to urgent care today and they sent her to the emergency room due to a concern of mastoiditis Related Data Previous Rx's ?Medication ?Instructions ?Recorded amoxicillin 875 mg-potassium 1 tab PO BID 5 days #10 tabs 06/10/23 clavulanate 125 mg tablet acetaminophen 500 mg tablet 500 mg PO Q6H PRN fever or pain 06/03/24 #20 tabs Allergies Allergy/AdvReac Type Severity Reaction Status Date / Time No Known Allergies Allergy Verified 06/02/24 16:35 Review of Systems Review of Systems: Constitutional : No Weight loss, complaining of Fever, No Chills, No Night Sweats, No Fatigue, No Malaise ENT/Mouth : Complaining of pain behind the right ear, No Hearing loss, No Ear Pain, No Nasal Congestion, No Sinus Pain, No Hoarseness, No sore throat, No Rhinorrhea, No Swallowing Difficulty Eyes: No Eye Pain, No Swelling, No Redness, No Foreign Body, No Discharge, No Vision Changes Cardiovascular : No Chest Pain, No SOB, No Dyspnea on Exertion, No Orthopnea, No Edema, No Palpitations Respiratory : No Cough, No Sputum, No Wheezing, No Smoke Exposure, No Dyspnea Gastrointestinal : No Nausea, No Vomiting, No Diarrhea, No Constipation, No abdominal Pain, No Hematochezia, No Melena Genitourinary : no irregular bleeding, No Dysuria, No Urinary Frequency, No Hematuria, No Urinary Incontinence, No Urgency, No Flank Pain, No Urinary Flow Changes, No Hesitancy Musculoskeletal : No joint pain, No Myalgias, No Joint Swelling Skin : No Skin Lesions, No rash Neuro : No Weakness, No Numbness, No Paresthesias, No Loss of Consciousness, No Dizziness, No Headache Psych : No Anxiety/Panic, No Depression, No SI/HI/AH/VH, No Social Issues, Heme/Lymph: No Bruising, No Bleeding,No Lymphadenopathy Endocrine : No Polyuria, No Polydipsia, No Temperature Intolerance [facility] Past Medical History Medical History Diabetes Hypertension Social History Social History Alcohol intake: never Advance Directives: No Advance Directives Information Provided: No Physical Exam ED Vital Signs: Vital Signs - 24 hr 06/02/24 16:21 06/02/24 22:51 06/03/24 01:51 Temperature 98.3 F 99.7 F 98.3 F Pulse Rate 84 91 83 Respiratory Rate 16 18 18 Blood Pressure 93/54 L 105/60 104/57 L Pulse Oximetry 95 94 92 Oxygen Delivery Method Room Air Room Air Room Air 06/03/24 03:54 06/03/24 06:40 Temperature 98.5 F 97.7 F Pulse Rate 80 76 Respiratory Rate 18 18 Blood Pressure 97/55 L 95/52 L Pulse Oximetry 92 93 Oxygen Delivery Method Room Air Room Air BMI result Body Mass Index 37.0 Const Other: Appearance: Alert. Oriented X3. No acute distress. Eyes: Pupils equal, round and reactive to light. ENT: Pharynx normal. Ear canals and bilateral tympanic membranes are normal. Pain to palpation over the right mastoid bone, no erythema Neck: Normal inspection. Neck supple. No lymph nodes noted. No crepitus CVS: Normal heart rate and rhythm. Pulses normal. Normal S1 and S2 Respiratory: No respiratory distress. Breath sounds normal. No Wheezing. No rales Abdomen: Soft and nontender. No rigidity. No distention. Skin: Skin warm and dry. Normal skin color. Normal skin turgor. Extremities: No lower extremity edema. No Lacerations. No Rash Neuro: Oriented X 3. No motor deficit. No sensory deficit. Moving all extremities. No slurred speech. CN 2 through 12 grossly intact Psych: calm, cooperative, normal affect Course Course Course Narrative: This is a Rapid Medical Examination (RME) performed by Cat Magdaleno PA-C in triage. Full HPI, ROS, assessment and treatment plan per primary provider in the Main ED. 59 yo Maced[place] speaking female presents to the ED today from for eval of headache, fevers (tmax 101F yesterday), pain behind right ear, and fatigue x24 hours. + minimal swelling noted to right mastoid when compared to the left. no protrusion of the auricle. ttp. right EAC/ TM wnl. Plan: labs, viral serology, +/- imaging per primary provider Medications Administered Discontinued Medications Generic Name Dose Route Start Last Admin Trade Name Freq PRN Reason Stop Dose Admin Acetaminophen 975 mg 06/02/24 23:19 06/03/24 00:33 Acetaminophen 325 Mg Tablet PO 06/02/24 23:20 975 mg ONCE ONE Administration Diphenhydramine HCl 25 mg 06/03/24 04:06 06/03/24 04:13 Diphenhydramine Hcl 50 Mg/Ml Vial IVPUSH 06/03/24 04:07 25 mg ONCE ONE Administration Sodium Chloride 2,000 mls @ 999 mls/hr 06/02/24 23:07 06/03/24 06:25 Ns IVCONT 06/03/24 01:07 Infused .Q2H1M ONE Infusion Sodium Chloride 1,000 mls @ 999 mls/hr 06/03/24 04:06 06/03/24 06:25 Ns IVCONT 06/03/24 05:06 Infused .Q1H1M ONE Infusion Metoclopramide HCl 10 mg 06/03/24 04:06 06/03/24 04:13 Metoclopramide Hcl 10 Mg/2 Ml Vial IVPUSH 06/03/24 04:07 10 mg ONCE ONE Administration Morphine Sulfate 1 mg 06/03/24 04:06 06/03/24 04:13 Morphine Sulfate 2 Mg/Ml Cartridge IVPUSH 06/03/24 04:07 1 mg ONCE ONE Administration Protocol Medical Decision Making Medical Decision Making MDM Narrative: -my interpretation of labs, normal white blood cell count 8.1. Patient's creatinine is 2.09 which is new for the patient. To patient's knowledge she has never been told that she has any issues with her kidneys. Patient denies any recent episodes of nausea vomiting or diarrhea. COVID test negative as well as influenza and RSV -discussed with the patient that we will obtain a CT scan to rule out mastoiditis. Also, patient aware that she will be receiving 2 L of fluids and then we will recheck creatinine levels. If there is no improvement, patient may need to be hospitalized. Patient agree with plan -my interpretation of CT scan, no obvious abnormality. Radiology report: No findings that would be consistent with mastoiditis After 3 L of fluid, patient's creatinine improved to 1.39. Patient instructed to have close follow-up with the primary care physician. Also to increase her water intake but not in excessive amounts as it may dropped a sodium Differential Diagnosis Differential Diagnoses: The differential diagnosis associated with the presentation includes (Acute mastoiditis, lymphedema, osteomyelitis) Admission/Observation Consideration of admission/observation: Escalation of care including admission/observation considered (Given patient's symptoms and lab results, observation/admission considered) Consult Healthcare Provider Management of the patient was discussed with: Hospitalist Lab Data MDM Lab Attestation statement: I reviewed the patient's lab results. 06/02/24 17:46 06/03/24 06:03 Labs: Lab Results 06/02/24 06/03/24 06/03/24 Range/Units 17:46 03:05 06:03 WBC 8.1 (4.8-10.8) X10*3/uL RBC 5.90 H (4.20-5.50) X10*6/uL Hgb 12.2 (12.0-16.0) g/dl Hct 39.2 (37.0-47.0) % MCV 66.4 L (80.0-98.0) fL MCH 20.7 L (27.0-33.0) pg MCHC 31.1 (31.0-35.0) g/dl RDW 17.2 H (11.0-16.0) % Plt Count 225 (160-400) X10*3/uL MPV 9.9 (9.4-12.3) fL Immature Gran % (Auto) 0.4 (0.0-0.4) % Neut % (Auto) 75.5 H (45-73) % Lymph % (Auto) 15.7 L (20-40) % [place] % (Auto) 2.7 (2-11) % Eos % (Auto) 5.6 H (0-4) % Baso % (Auto) 0.1 (0-2) % Lymph # (Auto) 1.3 (1.2-4.9) X10*3/uL [place] # (Auto) 0.2 (0.1-1.2) X10*3/uL Eos # (Auto) 0.5 H (0.0-0.4) X10*3/uL Baso # (Auto) 0.0 (0.0-0.2) X10*3/uL Abs Immat Gran (auto) 0.03 (0.00-0.03) X10*3/uL Absolute Neuts (auto) 6.1 (2.0-8.3) x10*3/uL Absolute Nucleated RBC 0.000 (0.0-0.012) X10*3/uL Nucleated RBC % (auto) 0.0 (0.0-0.2) /100WBC Sodium 139 142 142 (135-145) mmol/L Potassium 3.6 3.3 3.3 (3.3-5.1) mmol/L Chloride 101 107 108 (96-108) mmol/L Carbon Dioxide 28 24 25 (22-29) mmol/L Anion Gap 14 14 12 (12-20) BUN 18 H 26 H 23 H (9-16) mg/dL Creatinine 2.09 H 1.63 H 1.32 (0.5-1.4) mg/dL Estim Creat Clear Calc 33.7 43.3 53.4 Estimated GFR 24 33 41 Random Glucose 135 H 135 H 115 (60-115) mg/dL Calcium 9.2 8.2 L D 8.0 L (8.4-10.2) mg/dL Total Bilirubin 0.8 (0.0-1.0) mg/dL AST 15 (5-31) U/L ALT 16 (0-31) U/L Alkaline Phosphatase 100 (39-117) U/L C-Reactive Protein 10.01 H (< or = 0.50) mg/dL Total Protein 8.3 H (6.5-8.0) g/dL Albumin 4.1 (3.5-5.0) g/dL Influenza Type A (PCR) NEGATIVE (Negative) Influenza Type B (PCR) NEGATIVE (Negative) RSV RNA Qual (PCR) NEGATIVE (Negative) SARS-CoV-2 RNA (RT-PCR) NEGATIVE (Negative) Independent Interpretation I performed an independent interpretation of an: CT Scan Radiology Impression Discussion of test interpretation with radiology: I have reviewed the radiologist's reading. Radiologist Impression: Within the entirely visualized intracranial structures, the ventricles and sulci are normal in size and configuration and no focal parenchymal lesions of the brain or abnormal extra-axial fluid collections identified. Normal appearance of the orbits and globes. The left and right parotid glands each demonstrate ovoid foci side most suspicious for intraparotid lymph nodes. Additionally, a 7 mm rounded nodule is present anteriorly within the superficial lobe of the right parotid and a 6 mm x 7 mm rounded density is present anteriorly within the superficial lobe left parotid (series 4 image 18). Partial visualization is made of several left anterior cervical level 2 lymph nodes which measure slightly above normal limits of size with short axis diameters measuring 1.2 cm. No mastoid or middle ear cavity effusions identified. Normal appearance of the middle ear structures. No tegmen tendon IT has since. Grossly normal appearance of the inner ear structures. No temporal mandibular joint arthropathic changes. Normal appearance of the pharynx. Right external auditory canal and pinna are normal in appearance. CT/CT mastoid IMPRESSION: *No acute abnormality is identified. No findings to specifically correlate with right mastoid bone tenderness. *Indeterminate bilateral parotid lesions. 7 mm diameter rounded nodules are present in the superficial lobes of the left and right parotids may represent intraparotid lymph nodes or parotid tumors. Additionally, several borderline enlarged left anterior cervical level 2 lymph nodes are noted. Overall, as clinically indicated, findings could be further evaluated with dedicated unenhanced and IV contrast enhanced MRI of the neck. Critical Care Time Critical Care Time Critical Care Time: Yes Total Critical Care Time: 60 Attestation: I have personally provided critical care time. Time includes review of lab data, radiology results, discussion with consultants, and monitoring for potential decompensation. Intervention performed as documented. Discharge Plan Discharge Clinical Impression: Acute kidney injury, Lymphadenopathy Patient Disposition: Home, Self-Care Instructions: Acute Kidney Injury (DC), Lymphadenopathy (ED) Additional Instructions: Please follow-up with your primary care physician tomorrow. If you have any worsening or new symptoms, please return to the emergency room or call 911 Prescriptions: New acetaminophen 500 mg tablet 500 mg PO Q6H PRN (Reason: fever or pain) Qty: 20 0RF No Action amoxicillin-pot clavulanate 875-125 mg tablet 1 tab PO BID 5 Days Qty: 10 0RF Print Language: Macedonian
[2024-06-02 17:52] LABS: MANUAL DIFF FLAG NO
[2024-06-02 18:20] LABS: Alanine Aminotransferase 16 U/L (0-31); Albumin Level 4.1 g/dL (3.5-5.0); Alkaline Phosphatase 100 U/L (39-117); Anion Gap 14 (12-20); Aspartate Amino Transferase 15 U/L (5-31); Bilirubin Total 0.8 mg/dL (0.0-1.0); Blood Urea Nitrogen 18 mg/dL (9-16); Calcium 9.2 mg/dL (8.4-10.2); Carbon Dioxide 28 mmol/L (22-29); Chloride 101 mmol/L (96-108); Creatinine Clr Calc Pharmacy 33.7; Estimated Glomerular Filt Rate 24; Glucose Random 135 mg/dL (60-115); Potassium 3.6 mmol/L (3.3-5.1); Sodium 139 mmol/L (135-145); Total Protein 8.3 g/dL (6.5-8.0)
[2024-06-02 18:42] LABS: Influenza A PCR NEGATIVE (Negative); Influenza B PCR NEGATIVE (Negative); Resp Syncy Virus RNA Qual PCR NEGATIVE (Negative); SARS COV2 PCR INHOUSE NEGATIVE (Negative)
[2024-06-02 19:19] LABS: Basophils Percent Auto 0.1 % (0-2); Eosinophils Absolute Auto 0.5 X10*3/uL (0.0-0.4); Eosinophils Percent Auto 5.6 % (0-4); Hematocrit 39.2 % (37.0-47.0); Hemoglobin 12.2 g/dl (12.0-16.0); Imm Gran Abs Auto 0.03 X10*3/uL (0.00-0.03); Imm Gran Pct Auto 0.4 % (0.0-0.4); Lymphocytes Absolute Auto 1.3 X10*3/uL (1.2-4.9); Lymphocytes Percent Auto 15.7 % (20-40); Mean Corpuscular HGB Conc 31.1 g/dl (31.0-35.0); Mean Corpuscular Hemoglobin 20.7 pg (27.0-33.0); Mean Corpuscular Volume 66.4 fL (80.0-98.0); Mean Platelet Volume 9.9 fL (9.4-12.3); Monocytes Absolute Auto 0.2 X10*3/uL (0.1-1.2); Monocytes Percent Auto 2.7 % (2-11); Neutrophils Absolute Auto 6.1 x10*3/uL (2.0-8.3); Neutrophils Percent Auto 75.5 % (45-73); Platelet Count 225 X10*3/uL (160-400); Red Cell Distribution Width 17.2 % (11.0-16.0); White Blood Count 8.1 X10*3/uL (4.8-10.8)
[2024-06-02 22:51] VITALS: BP 105/60; PULSE 91; RESP 18; TEMP 37.6; O2SAT 94
[2024-06-02 23:23] LABS: C Reactive Protein 10.01 mg/dL (< or = 0.50)
[2024-06-03] MEDS: Acetaminophen 325 MG TABLET 975 MG PO (00:33)
[2024-06-03] MEDS: 0.9 % Sodium Chloride 2,000 ML 999 ML IVCONT (00:57)
[2024-06-03 01:51] VITALS: BP 104/57; PULSE 83; RESP 18; TEMP 36.8; O2SAT 92
[2024-06-03 03:24] LABS: Anion Gap 14 (12-20); Blood Urea Nitrogen 26 mg/dL (9-16); Calcium 8.2 mg/dL (8.4-10.2); Carbon Dioxide 24 mmol/L (22-29); Chloride 107 mmol/L (96-108); Creatinine Clr Calc Pharmacy 43.3; Estimated Glomerular Filt Rate 33; Glucose Random 135 mg/dL (60-115); Potassium 3.3 mmol/L (3.3-5.1); Sodium 142 mmol/L (135-145)
[2024-06-03 03:54] VITALS: BP 97/55; PULSE 80; RESP 18; TEMP 36.9; O2SAT 92
[2024-06-03] MEDS: Morphine Sulfate 2 MG/ML CARTRIDGE 1 MG IVPUSH (04:13)
[2024-06-03] MEDS: Metoclopramide HCl 10 MG/2 ML VIAL IVPUSH (04:13)
[2024-06-03] MEDS: 0.9 % Sodium Chloride 1,000 ML 999 ML IVCONT (04:13)
[2024-06-03] MEDS: diphenhydrAMINE HCL 50 MG/ML VIAL 25 MG IVPUSH (04:13)
[2024-06-03 06:28] LABS: Anion Gap 12 (12-20); Blood Urea Nitrogen 23 mg/dL (9-16); Carbon Dioxide 25 mmol/L (22-29); Chloride 108 mmol/L (96-108); Creatinine Clr Calc Pharmacy 53.4; Estimated Glomerular Filt Rate 41; Glucose Random 115 mg/dL (60-115); Potassium 3.3 mmol/L (3.3-5.1); Sodium 142 mmol/L (135-145)
[2024-06-03 06:40] VITALS: BP 95/52; PULSE 76; RESP 18; TEMP 36.5; O2SAT 93
[2024-06-03 06:50] VITALS: BP 90/46; PULSE 77; RESP 16; TEMP 36.6; O2SAT 93
[2024-06-03 08:14] LABS: Erythrocyte Sedimentation Rate 51 MM/HR (0-20)
== END 2024-06-03 06:55 | disposition home or self-care (01) ==
PROVIDERS: Physician Assistant Medical; Emergency Provider Emergency Medicine
DX: N17.9 Acute kidney failure, unspecified (principal); R59.1 Generalized enlarged lymph nodes; R50.9 Fever, unspecified; Z03.818 Encounter for observation for suspected exposure to other biological agents ruled out; E11.9 Type 2 diabetes mellitus without complications; I10 Essential (primary) hypertension
CPT/HCPCS: 0241U; 36415; 70481; 80048; 80053; 85025; 85652; 86140; 96361; 96374; 96375; 99283; 99285; J1200; J2270; J2765